=== PATIENT | male | born 1955 | race Caucasian/White ===

== ENCOUNTER 2020-08-15 06:22 | Outpatient (REF) | payer BC, SELFPAY ==
[2020-08-15 07:14] LABS: MANUAL DIFF FLAG NO
[2020-08-15 07:22] LABS: Basophils Percent Auto 0.3 % (0-2); Eosinophils Absolute Auto 0.3 X10*3/uL (0.0-0.4); Eosinophils Percent Auto 3.5 % (0-4); Hematocrit 46.1 % (42-52); Hemoglobin 15.3 g/dl (14.0-18.0); Imm Gran Abs Auto 0.03 X10*3/uL (0.00-0.03); Imm Gran Pct Auto 0.3 % (0.0-0.4); Lymphocytes Absolute Auto 3.1 X10*3/uL (1.2-4.9); Lymphocytes Percent Auto 34.7 % (20-40); Mean Corpuscular HGB Conc 33.2 g/dl (31.0-36.0); Mean Corpuscular Hemoglobin 30.9 pg (27.0-33.0); Mean Corpuscular Volume 93.1 fL (80-98); Monocytes Absolute Auto 0.8 X10*3/uL (0.1-1.2); Monocytes Percent Auto 9.1 % (2-11); Neutrophils Absolute Auto 4.7 X10*3/uL (2.0-8.3); Neutrophils Percent Auto 52.1 % (45-73); Platelet Count 304 X10*3/uL (160-400); Red Blood Count 4.95 X10*6/uL (4.60-5.80); Red Cell Distribution Width 12.3 % (11.0-16.0); White Blood Count 9.1 X10*3/uL (4.8-10.8)
[2020-08-15 07:39] LABS: Estimated Average Glucose 157 mg/dL; Hemoglobin A1c % 7.1 %
[2020-08-15 07:59] LABS: Alanine Aminotransferase 19 U/L (0-40); Albumin Level 4.5 g/dL (3.5-5.0); Alkaline Phosphatase 61 U/L (39-117); Anion Gap 15 (12-20); Aspartate Amino Transferase 15 U/L (5-37); Bilirubin Total 0.6 mg/dL (0.0-1.0); Blood Urea Nitrogen 18 mg/dL (9-16); Calcium 9.3 mg/dL (8.4-10.2); Carbon Dioxide 27 mmol/L (22-29); Chloride 105 mmol/L (96-108); Estimated Glomerular Filt Rate > 60; Glucose Fasting 180 mg/dL (60-99); Potassium 4.6 mmol/l (3.3-5.1); Sodium 142 mmol/L (135-145)
[2020-08-15 08:20] LABS: Thyroid Stimulating Hormone 1.31 uIU/mL (0.32-4.0)
[2020-08-15 08:36] LABS: ~HepC Num1 0.06 S/CO (0.00-0.79); ~Hepatitis C Antibody Nonreactive (Nonreactive)
== END 2020-08-15 06:23 | disposition home or self-care (01) ==
LOC: HO.LAB 06:22
PROVIDERS: PCP Internal Medicine; Visit Provider Internal Medicine
DX: E11.9 Type 2 diabetes mellitus without complications (principal); E78.00 Pure hypercholesterolemia, unspecified; Z11.59 Encounter for screening for other viral diseases
CPT/HCPCS: 36415; 80053; 83036; 84443; 85025; 86803

== ENCOUNTER → 2020-08-22 10:03 | Outpatient (BNVA) | payer BC, SELFPAY | PROVIDERS: PCP Internal Medicine; Visit Provider Orthopaedic Surgery ==

== ENCOUNTER 2020-09-08 06:08 | Outpatient (REF) | payer BC, SELFPAY ==
[2020-09-08 07:15] LABS: MANUAL DIFF FLAG NO
[2020-09-08 07:27] LABS: Glucose Urine UA NEG (NEG); Leukocyte Esterase Urine NEG (NEG); Nitrite Urine NEG (NEG); Specific Gravity - Urine 1.025 (1.005-1.025); Urine Blood NEG (NEG); Urine Ketones NEG (NEG); Urine Protein NEG (NEG-TRACE)
[2020-09-08 07:29] LABS: Appearance Urine CLEAR; Color Urine YELLOW
[2020-09-08 07:31] LABS: Basophils Percent Auto 0.3 % (0-2); Eosinophils Absolute Auto 0.3 X10*3/uL (0.0-0.4); Eosinophils Percent Auto 2.9 % (0-4); Hematocrit 46.8 % (42-52); Hemoglobin 15.1 g/dl (14.0-18.0); Imm Gran Abs Auto 0.02 X10*3/uL (0.00-0.03); Imm Gran Pct Auto 0.2 % (0.0-0.4); Lymphocytes Percent Auto 33.9 % (20-40); Mean Corpuscular HGB Conc 32.3 g/dl (31.0-36.0); Mean Corpuscular Hemoglobin 30.1 pg (27.0-33.0); Mean Corpuscular Volume 93.2 fL (80-98); Mean Platelet Volume 10.3 fL (9.4-12.4); Monocytes Absolute Auto 0.9 X10*3/uL (0.1-1.2); Monocytes Percent Auto 10.1 % (2-11); Neutrophils Absolute Auto 4.6 X10*3/uL (2.0-8.3); Neutrophils Percent Auto 52.6 % (45-73); Platelet Count 287 X10*3/uL (160-400); Red Blood Count 5.02 X10*6/uL (4.60-5.80); Red Cell Distribution Width 12.6 % (11.0-16.0); White Blood Count 8.7 X10*3/uL (4.8-10.8)
[2020-09-08 07:44] LABS: Creatinine Urine 132.96 mg/dL
[2020-09-08 07:49] LABS: Alanine Aminotransferase 17 U/L (0-40); Albumin Level 4.4 g/dL (3.5-5.0); Alkaline Phosphatase 66 U/L (39-117); Anion Gap 13 (12-20); Aspartate Amino Transferase 14 U/L (5-37); Bilirubin Total 0.6 mg/dL (0.0-1.0); Blood Urea Nitrogen 17 mg/dL (9-16); Calcium 9.4 mg/dL (8.4-10.2); Carbon Dioxide 27 mmol/L (22-29); Chloride 102 mmol/L (96-108); Cholesterol 211 mg/dL; Estimated Glomerular Filt Rate > 60; Glucose Fasting 184 mg/dL (60-99); HDL Cholesterol 52 mg/dL; LDL Cholesterol Calculated 130 mg/dl; Potassium 4.8 mmol/L (3.3-5.1); Sodium 137 mmol/L (135-145); Triglycerides 149 mg/dL
[2020-09-08 07:55] LABS: Estimated Average Glucose 171 mg/dL; Hemoglobin A1c % 7.6 %
[2020-09-08 08:10] LABS: Prostate Specific Antigen Scr 1.47 ng/mL (<0.05-4.0); Thyroid Stimulating Hormone 1.35 uIU/mL (0.32-4.0)
[2020-09-08 10:37] LABS: Vitamin B12 1473 pg/mL (200-900)
== END 2020-09-08 06:09 | disposition home or self-care (01) ==
LOC: HO.LAB 06:08
PROVIDERS: Visit Provider Internal Medicine
DX: Z12.5 Encounter for screening for malignant neoplasm of prostate (principal); E11.9 Type 2 diabetes mellitus without complications; E53.8 Deficiency of other specified B group vitamins; I10 Essential (primary) hypertension; E78.00 Pure hypercholesterolemia, unspecified
CPT/HCPCS: 36415; 80053; 80061; 81003; 82043; 82607; 83036; 84153; 84443; 85025

== ENCOUNTER 2020-09-21 09:00 | Outpatient (REF) | payer BC, SELFPAY ==
--- NOTE | ~2020-09-21 | US_ITS ---
EXAMINATION: US RETROPERITONEAL LIMITED (AORTA) CLINICAL INFORMATION: History of smoking, screening. COMPARISON: None. TECHNIQUE: Yusuf-scale, color Doppler and spectral Doppler evaluation of the abdominal aorta. FINDINGS: The aorta is normal. The measurements of the aorta in maximum AP and transverse dimensions respectively are as follows: Proximal: 2.4 x 2.2 cm. Mid: 2.0 x 2.2 cm. Distal: 1.7 x 1.7 cm. PSV: 113 cm/s. The measurements of the common iliac arteries in maximum AP and TRV dimensions are as follows: Right Common Iliac Artery: 1.1 x 1.0 cm. Left Common Iliac Artery: 1.1 x 1.1 cm. US/US aorta IMPRESSION: No evidence of aortic aneurysm.
== END 2020-09-21 09:01 | disposition home or self-care (01) ==
LOC: HO.HMGCX 09:00
PROVIDERS: PCP Internal Medicine; Visit Provider Internal Medicine
DX: Z13.6 Encounter for screening for cardiovascular disorders (principal)
CPT/HCPCS: 76775

== ENCOUNTER 2021-06-05 06:15 | Outpatient (REF) | payer BC, SELFPAY ==
[2021-06-05 07:55] LABS: Alanine Aminotransferase 16 U/L (0-40); Albumin Level 4.4 g/dL (3.5-5.0); Alkaline Phosphatase 67 U/L (39-117); Anion Gap 13 (12-20); Aspartate Amino Transferase 14 U/L (5-37); Bilirubin Total 0.6 mg/dL (0.0-1.0); Blood Urea Nitrogen 15 mg/dL (9-16); Calcium 9.4 mg/dL (8.4-10.2); Carbon Dioxide 27 mmol/L (22-29); Chloride 104 mmol/L (96-108); Cholesterol 205 mg/dL; Estimated Glomerular Filt Rate > 60; Glucose Random 192 mg/dL (60-115); HDL Cholesterol 53 mg/dL; LDL Cholesterol Calculated 119 mg/dl; Potassium 4.7 mmol/L (3.3-5.1); Sodium 139 mmol/L (135-145); Total Protein 6.9 g/dL (6.5-8.0); Triglycerides 165 mg/dL
== END 2021-06-05 06:16 | disposition home or self-care (01) ==
LOC: HO.LAB 06:15
PROVIDERS: PCP Internal Medicine; Visit Provider Internal Medicine
DX: E78.00 Pure hypercholesterolemia, unspecified (principal); I10 Essential (primary) hypertension
CPT/HCPCS: 36415; 80053; 80061

== ENCOUNTER 2021-06-07 06:09 | Outpatient (REF) | payer BC, SELFPAY ==
[2021-06-07 06:16] LABS: MANUAL DIFF FLAG NO
[2021-06-07 07:43] LABS: Basophils Absolute Auto 0.1 X10*3/uL (0.0-0.2); Basophils Percent Auto 0.5 % (0-2); Eosinophils Absolute Auto 0.4 X10*3/uL (0.0-0.4); Eosinophils Percent Auto 3.7 % (0-4); Hematocrit 45.2 % (42.0-52.0); Hemoglobin 14.9 g/dl (14.0-18.0); Imm Gran Abs Auto 0.03 X10*3/uL (0.00-0.03); Imm Gran Pct Auto 0.3 % (0.0-0.4); Lymphocytes Percent Auto 30.7 % (20-40); Mean Corpuscular Hemoglobin 30.7 pg (27.0-33.0); Mean Platelet Volume 10.1 fL (9.4-12.4); Monocytes Absolute Auto 0.8 X10*3/uL (0.1-1.2); Monocytes Percent Auto 8.3 % (2-11); Neutrophils Absolute Auto 5.5 x10*3/uL (2.0-8.3); Neutrophils Percent Auto 56.5 % (45-73); Platelet Count 303 X10*3/uL (160-400); Red Blood Count 4.86 X10*6/uL (4.60-5.80); Red Cell Distribution Width 12.4 % (11.0-16.0); White Blood Count 9.8 X10*3/uL (4.8-10.8)
[2021-06-07 07:49] LABS: Appearance Urine CLEAR; Color Urine YELLOW; Glucose Urine UA NEG (NEG); Leukocyte Esterase Urine NEG (NEG); Nitrite Urine NEG (NEG); PH 5.5 (5.0-8.0); Specific Gravity - Urine 1.025 (1.005-1.025); Urine Blood NEG (NEG); Urine Ketones NEG (NEG); Urine Protein NEG (NEG-TRACE)
[2021-06-07 07:54] LABS: Estimated Average Glucose 163 mg/dL; Hemoglobin A1c % 7.3 %
[2021-06-07 08:04] LABS: Creatinine Urine 89.59 mg/dL; Microalbum/Creatinine Ratio Ur 6.6 ug/mg cr
[2021-06-07 08:10] LABS: Alanine Aminotransferase 18 U/L (0-40); Albumin Level 4.3 g/dL (3.5-5.0); Alkaline Phosphatase 64 U/L (39-117); Anion Gap 13 (12-20); Aspartate Amino Transferase 14 U/L (5-37); Bilirubin Total 0.6 mg/dL (0.0-1.0); Blood Urea Nitrogen 15 mg/dL (9-16); Calcium 9.2 mg/dL (8.4-10.2); Carbon Dioxide 26 mmol/L (22-29); Chloride 104 mmol/L (96-108); Cholesterol 195 mg/dL; Estimated Glomerular Filt Rate > 60; Glucose Random 183 mg/dL (60-115); HDL Cholesterol 52 mg/dL; LDL Cholesterol Calculated 115 mg/dl; Potassium 4.8 mmol/L (3.3-5.1); Sodium 138 mmol/L (135-145); Triglycerides 144 mg/dL
[2021-06-07 08:34] LABS: Thyroid Stimulating Hormone 1.84 uIU/mL (0.32-4.0)
[2021-06-07 09:40] LABS: Vitamin B12 371 pg/mL (200-900)
== END 2021-06-07 06:10 | disposition home or self-care (01) ==
LOC: HO.LAB 06:09
PROVIDERS: PCP Internal Medicine; Visit Provider Internal Medicine
DX: E78.00 Pure hypercholesterolemia, unspecified (principal); E11.9 Type 2 diabetes mellitus without complications; I10 Essential (primary) hypertension
CPT/HCPCS: 36415; 80053; 80061; 81003; 82043; 82607; 83036; 84443; 85025

== ENCOUNTER 2021-09-07 06:05 | Outpatient (REF) | payer BC, SELFPAY ==
[2021-09-07 06:27] LABS: MANUAL DIFF FLAG NO
[2021-09-07 07:09] LABS: Basophils Percent Auto 0.5 % (0-2); Eosinophils Absolute Auto 0.3 X10*3/uL (0.0-0.4); Eosinophils Percent Auto 3.8 % (0-4); Hematocrit 46.1 % (42.0-52.0); Hemoglobin 15.2 g/dl (14.0-18.0); Imm Gran Abs Auto 0.03 X10*3/uL (0.00-0.03); Imm Gran Pct Auto 0.4 % (0.0-0.4); Lymphocytes Absolute Auto 2.8 X10*3/uL (1.2-4.9); Lymphocytes Percent Auto 34.2 % (20-40); Mean Corpuscular Hemoglobin 30.6 pg (27.0-33.0); Mean Corpuscular Volume 92.9 fL (80.0-98.0); Monocytes Absolute Auto 0.7 X10*3/uL (0.1-1.2); Monocytes Percent Auto 8.3 % (2-11); Neutrophils Absolute Auto 4.3 x10*3/uL (2.0-8.3); Neutrophils Percent Auto 52.8 % (45-73); Platelet Count 276 X10*3/uL (160-400); Red Blood Count 4.96 X10*6/uL (4.60-5.80); Red Cell Distribution Width 12.2 % (11.0-16.0); White Blood Count 8.1 X10*3/uL (4.8-10.8)
[2021-09-07 07:22] LABS: Estimated Average Glucose 163 mg/dL; Hemoglobin A1c % 7.3 %
[2021-09-07 07:34] LABS: Alanine Aminotransferase 14 U/L (0-40); Albumin Level 4.2 g/dL (3.5-5.0); Alkaline Phosphatase 65 U/L (39-117); Anion Gap 11 (12-20); Aspartate Amino Transferase 14 U/L (5-37); Bilirubin Total 0.5 mg/dL (0.0-1.0); Blood Urea Nitrogen 18 mg/dL (9-16); Calcium 9.4 mg/dL (8.4-10.2); Carbon Dioxide 28 mmol/L (22-29); Chloride 104 mmol/L (96-108); Cholesterol 190 mg/dL; Estimated Glomerular Filt Rate > 60; Glucose Random 162 mg/dL (60-115); HDL Cholesterol 46 mg/dL; LDL Cholesterol Calculated 114 mg/dl; Sodium 138 mmol/L (135-145); Total Protein 6.9 g/dL (6.5-8.0); Triglycerides 150 mg/dL
[2021-09-07 07:39] LABS: Appearance Urine CLEAR; Color Urine YELLOW; Glucose Urine UA NEG (NEG); Leukocyte Esterase Urine NEG (NEG); Nitrite Urine NEG (NEG); PH 5.5 (5.0-8.0); Specific Gravity - Urine 1.025 (1.005-1.025); Urine Blood NEG (NEG); Urine Ketones NEG (NEG); Urine Protein NEG (NEG-TRACE)
[2021-09-07 08:44] LABS: Creatinine Urine 85.87 mg/dL; Microalbumin Urine < 5.0 mg/L
== END 2021-09-07 06:06 | disposition home or self-care (01) ==
LOC: HO.LAB 06:05
PROVIDERS: PCP Internal Medicine; Visit Provider Internal Medicine
DX: I10 Essential (primary) hypertension (principal); E11.9 Type 2 diabetes mellitus without complications; E78.00 Pure hypercholesterolemia, unspecified
CPT/HCPCS: 36415; 80053; 80061; 81003; 82043; 83036; 84443; 85025

== ENCOUNTER 2021-10-15 06:22 | Outpatient (REF) | payer BC, SELFPAY ==
[2021-10-15 06:36] LABS: MANUAL DIFF FLAG NO
[2021-10-15 07:21] LABS: Basophils Percent Auto 0.2 % (0-2); Eosinophils Absolute Auto 0.8 X10*3/uL (0.0-0.4); Eosinophils Percent Auto 6.2 % (0-4); Hematocrit 42.9 % (42.0-52.0); Hemoglobin 13.8 g/dl (14.0-18.0); Imm Gran Abs Auto 0.04 X10*3/uL (0.00-0.03); Imm Gran Pct Auto 0.3 % (0.0-0.4); Lymphocytes Absolute Auto 2.9 X10*3/uL (1.2-4.9); Lymphocytes Percent Auto 21.7 % (20-40); Mean Corpuscular HGB Conc 32.2 g/dl (31.0-36.0); Mean Corpuscular Hemoglobin 29.9 pg (27.0-33.0); Mean Corpuscular Volume 92.9 fL (80.0-98.0); Mean Platelet Volume 10.3 fL (9.4-12.4); Monocytes Absolute Auto 1.2 X10*3/uL (0.1-1.2); Monocytes Percent Auto 9.1 % (2-11); Neutrophils Absolute Auto 8.2 x10*3/uL (2.0-8.3); Neutrophils Percent Auto 62.5 % (45-73); Platelet Count 283 X10*3/uL (160-400); Red Blood Count 4.62 X10*6/uL (4.60-5.80); Red Cell Distribution Width 12.7 % (11.0-16.0); White Blood Count 13.2 X10*3/uL (4.8-10.8)
[2021-10-15 07:29] LABS: Estimated Average Glucose 160 mg/dL; Hemoglobin A1c % 7.2 %
[2021-10-15 08:13] LABS: Prostate Specific Antigen Scr 1.09 ng/mL (<0.05-4.0)
[2021-10-15 08:14] LABS: Alanine Aminotransferase 16 U/L (0-40); Albumin Level 4.1 g/dL (3.5-5.0); Alkaline Phosphatase 61 U/L (39-117); Anion Gap 14 (12-20); Aspartate Amino Transferase 16 U/L (5-37); Bilirubin Total 0.5 mg/dL (0.0-1.0); Blood Urea Nitrogen 15 mg/dL (9-16); Calcium 9.2 mg/dL (8.4-10.2); Carbon Dioxide 26 mmol/L (22-29); Chloride 104 mmol/L (96-108); Cholesterol 176 mg/dL; Estimated Glomerular Filt Rate > 60; Glucose Random 162 mg/dL (60-115); HDL Cholesterol 46 mg/dL; LDL Cholesterol Calculated 107 mg/dl; Potassium 4.9 mmol/L (3.3-5.1); Sodium 139 mmol/L (135-145); Total Protein 6.7 g/dL (6.5-8.0); Triglycerides 118 mg/dL
[2021-10-15 09:18] LABS: Creatinine Urine 142.37 mg/dL; Microalbum/Creatinine Ratio Ur 4.9 ug/mg cr
== END 2021-10-15 06:23 | disposition home or self-care (01) ==
LOC: HO.LAB 06:22
PROVIDERS: PCP Internal Medicine; Visit Provider Internal Medicine
DX: Z12.5 Encounter for screening for malignant neoplasm of prostate (principal); E11.9 Type 2 diabetes mellitus without complications; M17.0 Bilateral primary osteoarthritis of knee; I10 Essential (primary) hypertension
CPT/HCPCS: 36415; 80053; 80061; 82043; 83036; 84153; 85025

== ENCOUNTER 2022-05-30 06:04 | Outpatient (REF) | payer BC, SELFPAY ==
[2022-05-30 06:09] LABS: MANUAL DIFF FLAG NO
[2022-05-30 07:41] LABS: Basophils Absolute Auto 0.1 X10*3/uL (0.0-0.2); Basophils Percent Auto 0.5 % (0-2); Eosinophils Absolute Auto 0.4 X10*3/uL (0.0-0.4); Eosinophils Percent Auto 3.4 % (0-4); Hematocrit 45.6 % (42.0-52.0); Hemoglobin 14.9 g/dl (14.0-18.0); Imm Gran Abs Auto 0.04 X10*3/uL (0.00-0.03); Imm Gran Pct Auto 0.4 % (0.0-0.4); Lymphocytes Absolute Auto 3.8 X10*3/uL (1.2-4.9); Lymphocytes Percent Auto 36.5 % (20-40); Mean Corpuscular HGB Conc 32.7 g/dl (31.0-36.0); Mean Corpuscular Hemoglobin 30.5 pg (27.0-33.0); Mean Corpuscular Volume 93.3 fL (80.0-98.0); Mean Platelet Volume 9.9 fL (9.4-12.4); Monocytes Absolute Auto 0.9 X10*3/uL (0.1-1.2); Monocytes Percent Auto 8.9 % (2-11); Neutrophils Absolute Auto 5.2 x10*3/uL (2.0-8.3); Neutrophils Percent Auto 50.3 % (45-73); Platelet Count 295 X10*3/uL (160-400); Red Blood Count 4.89 X10*6/uL (4.60-5.80); Red Cell Distribution Width 12.5 % (11.0-16.0); White Blood Count 10.3 X10*3/uL (4.8-10.8)
[2022-05-30 07:46] LABS: Estimated Average Glucose 163 mg/dL; Hemoglobin A1c % 7.3 %
[2022-05-30 08:09] LABS: Alanine Aminotransferase 17 U/L (0-40); Albumin Level 4.4 g/dL (3.5-5.0); Alkaline Phosphatase 68 U/L (39-117); Anion Gap 16 (12-20); Aspartate Amino Transferase 15 U/L (5-37); Bilirubin Total 0.6 mg/dL (0.0-1.0); Blood Urea Nitrogen 14 mg/dL (9-16); Calcium 9.3 mg/dL (8.4-10.2); Carbon Dioxide 25 mmol/L (22-29); Chloride 104 mmol/L (96-108); Estimated Glomerular Filt Rate > 60; Glucose Random 148 mg/dL (60-115); Potassium 4.4 mmol/L (3.3-5.1); Sodium 141 mmol/L (135-145); Total Protein 6.9 g/dL (6.5-8.0)
[2022-05-30 08:20] LABS: Thyroid Stimulating Hormone 1.67 uIU/mL (0.32-4.0)
== END 2022-05-30 06:05 | disposition home or self-care (01) ==
LOC: HO.LAB 06:04
PROVIDERS: PCP Internal Medicine; Visit Provider Internal Medicine
DX: E11.9 Type 2 diabetes mellitus without complications (principal); I10 Essential (primary) hypertension
CPT/HCPCS: 36415; 80053; 83036; 84443; 85025

== ENCOUNTER → 2022-08-06 12:08 | Outpatient (BNVA) | payer OTHER, SELFPAY | PROVIDERS: PCP Internal Medicine; Visit Provider Physician Assistant Medical | DX: S70.02XA Contusion of left hip, initial encounter (principal); S83.92XA Sprain of unspecified site of left knee, initial encounter; W01.0XXA Fall on same level from slipping, tripping and stumbling without subsequent striking against object, initial encounter | CPT/HCPCS: 73502; 73564; 99203 ==

== ENCOUNTER → 2022-08-12 10:32 | Outpatient (BNVA) | payer OTHER, SELFPAY | PROVIDERS: PCP Internal Medicine; Visit Provider Physician Assistant Medical | DX: S70.02XA Contusion of left hip, initial encounter (principal); S83.92XA Sprain of unspecified site of left knee, initial encounter; W01.0XXA Fall on same level from slipping, tripping and stumbling without subsequent striking against object, initial encounter | CPT/HCPCS: 99213 ==

== ENCOUNTER → 2022-08-27 07:59 | Outpatient (BNVA) | payer OTHER, SELFPAY | PROVIDERS: PCP Internal Medicine; Visit Provider Physician Assistant Medical | DX: S70.02XD Contusion of left hip, subsequent encounter (principal); S83.92XD Sprain of unspecified site of left knee, subsequent encounter; W01.0XXD Fall on same level from slipping, tripping and stumbling without subsequent striking against object, subsequent encounter | CPT/HCPCS: 99213 ==

== ENCOUNTER 2022-12-26 06:03 | Outpatient (REF) | payer BC, SELFPAY ==
[2022-12-26 06:18] LABS: MANUAL DIFF FLAG NO
[2022-12-26 07:32] LABS: Basophils Absolute Auto 0.1 X10*3/uL (0.0-0.2); Basophils Percent Auto 0.6 % (0-2); Eosinophils Absolute Auto 0.3 X10*3/uL (0.0-0.4); Eosinophils Percent Auto 2.9 % (0-4); Hemoglobin 15.1 g/dl (14.0-18.0); Imm Gran Abs Auto 0.04 X10*3/uL (0.00-0.03); Imm Gran Pct Auto 0.4 % (0.0-0.4); Lymphocytes Absolute Auto 3.6 X10*3/uL (1.2-4.9); Lymphocytes Percent Auto 35.2 % (20-40); Mean Corpuscular HGB Conc 32.8 g/dl (31.0-36.0); Mean Corpuscular Hemoglobin 30.4 pg (27.0-33.0); Mean Corpuscular Volume 92.6 fL (80.0-98.0); Monocytes Absolute Auto 0.9 X10*3/uL (0.1-1.2); Monocytes Percent Auto 9.1 % (2-11); Neutrophils Absolute Auto 5.3 x10*3/uL (2.0-8.3); Neutrophils Percent Auto 51.8 % (45-73); Platelet Count 304 X10*3/uL (160-400); Red Blood Count 4.97 X10*6/uL (4.60-5.80); Red Cell Distribution Width 12.4 % (11.0-16.0); White Blood Count 10.3 X10*3/uL (4.8-10.8)
[2022-12-26 07:44] LABS: Estimated Average Glucose 157 mg/dL; Hemoglobin A1c % 7.1 %
[2022-12-26 08:00] LABS: Alanine Aminotransferase 19 U/L (0-40); Albumin Level 4.4 g/dL (3.5-5.0); Alkaline Phosphatase 67 U/L (39-117); Anion Gap 13 (12-20); Aspartate Amino Transferase 17 U/L (5-37); Bilirubin Total 0.7 mg/dL (0.0-1.0); Blood Urea Nitrogen 18 mg/dL (9-16); Calcium 9.4 mg/dL (8.4-10.2); Carbon Dioxide 26 mmol/L (22-29); Chloride 105 mmol/L (96-108); Cholesterol 198 mg/dL; Estimated Glomerular Filt Rate > 60; Glucose Random 167 mg/dL (60-115); HDL Cholesterol 55 mg/dL; LDL Cholesterol Calculated 110 mg/dl; Potassium 4.4 mmol/L (3.3-5.1); Sodium 140 mmol/L (135-145); Triglycerides 166 mg/dL
[2022-12-26 08:24] LABS: Appearance Urine Clear; Color Urine Yellow; Glucose Urine UA Negative (Negative); Leukocyte Esterase Urine Negative (Negative); Nitrite Urine Negative (Negative); Urine Blood Negative (Negative); Urine Ketones Negative (Negative); Urine Protein Negative (Neg-Trace)
[2022-12-26 08:28] LABS: Thyroid Stimulating Hormone 2.21 uIU/mL (0.32-4.0); Vitamin B12 390 pg/mL (200-900)
[2022-12-26 08:32] LABS: Creatinine Urine 129.17 mg/dL; Microalbum/Creatinine Ratio Ur 5.4 ug/mg cr
== END 2022-12-26 06:04 | disposition home or self-care (01) ==
LOC: HO.LAB 06:03
PROVIDERS: PCP Internal Medicine; Visit Provider Internal Medicine
DX: E11.9 Type 2 diabetes mellitus without complications (principal); I10 Essential (primary) hypertension; Z12.5 Encounter for screening for malignant neoplasm of prostate
CPT/HCPCS: 36415; 80053; 80061; 81003; 82043; 82607; 83036; 84153; 84443; 85025

== ENCOUNTER 2023-05-06 06:30 | Day surgery (SDC) | payer BC, SELFPAY ==
--- NOTE | 2023-05-05 08:44 | HO.ANESPROP2 ---
Documented by User: Layne Dawn NP 05/05/23 08:45 HPI - Anesthesia Eval Consult details Narrative: 67yo M for Colonoscopy [facility] Active Problems Active Problems: All Active Problems (Updated 08/22/20 @ 10:20 by Nick Botello MD) Lipoma of right shoulder (Acute) Past Medical History Medical History (Updated 05/06/23 @ 06:41 by Petrona Huber RN) Hypertension Diabetes Surgical History Surgical History (Updated 05/06/23 @ 07:07 by Petrona Huber RN) History of total bilateral knee replacement (TKR) Hx of colonoscopy Social History Social History (Updated 08/22/20 @ 10:10 by Chikis Stover CMA) Patient Tobacco Use Status: Never used Tobacco Are you DNR?: No Advance Directives: No Advance Directives Information Provided: Yes Nutrition Risks: No Nutritional Risk Current occupational status: employed 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 Meds Allergies Allergy/AdvReac Type Severity Reaction Status Date / Time No Known Allergies Allergy Verified 05/06/23 06:41 Home Medications Medication Instructions Recorded Confirmed Last Taken Type calcium glubionate 115 mg/5 mL mg PO 08/22/20 Unknown History (1.8 gram/5 mL) oral syrup metformin 500 mg tablet 500 mg PO DAILY 08/22/20 05/06/23 Unknown History valsartan 80 mg tablet 80 mg PO DAILY 08/22/20 05/06/23 05/06/23 History Exam Exam Date and Time: May 05, 2023 0844 Assessment and Plan Assessment Anesthesia Assessment: Chart Reviewed Documented by User: Kingsley Molina MD 05/06/23 07:41 [facility] Past Medical History Medical History (Updated 05/06/23 @ 06:41 by Petrona Huber RN) Hypertension Diabetes Family History Family history of problems with anesthesia: No Surgical History Surgical History (Updated 05/06/23 @ 07:07 by Petrona Huber RN) History of total bilateral knee replacement (TKR) Hx of colonoscopy History of Problems with Anesthesia: No Social History Social History (Updated 08/22/20 @ 10:10 by Chikis Stover CMA) Patient Tobacco Use Status: Never used Tobacco Are you DNR?: No Advance Directives: No Advance Directives Information Provided: Yes Nutrition Risks: No Nutritional Risk Current occupational status: employed 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 Allergies Allergy/AdvReac Type Severity Reaction Status Date / Time No Known Allergies Allergy Verified 05/06/23 06:41 Home Medications Medication Instructions Recorded Confirmed Last Taken Type calcium glubionate 115 mg/5 mL mg PO 08/22/20 Unknown History (1.8 gram/5 mL) oral syrup metformin 500 mg tablet 500 mg PO DAILY 08/22/20 05/06/23 Unknown History valsartan 80 mg tablet 80 mg PO DAILY 08/22/20 05/06/23 05/06/23 History Exam Airway Mallampati Class: II TM Dist: >3cm Neck ROM: Full Heart: ok Lungs: ok Assessment and Plan Assessment Anesthesia Assessment: Anesthesia Plan Discussed Final Anesthetic Review Family History of Problems with Anesthesia: No History of Problems with Anesthesia: No NPO: Yes ASA Class: II Final Preanesthetic Review: No Changes in Pt Med Stat, Meds/Allgs Chart Reviewed, Consent Obtained/Reviewed and Anes Risks/Benef Reviewed Patient Risk: Low Procedure Risk: Low Anesthetic Plan Anesthetic Plan: MAC: and Agree w/ Assess. and Plan Disposition: Standard PACU
[2023-05-06 06:03] VITALS: BMI 22.4
[2023-05-06] MEDS: Lactated Ringers 1,000 ML 100 ML IVCONT (06:49)
[2023-05-06 06:54] VITALS: BP 151/81; PULSE 82; RESP 18; TEMP 36.6; O2SAT 98
[2023-05-06 07:27] LABS: Glucose, Whole Blood 142 mg/dL (60-115)
--- NOTE | 2023-05-06 07:29 | P.HPSUR_ITS ---
Pre-Procedural Eval Section A Date of Service: 05/06/23 Section B Chief Complaint: Encounter for screening for malignant neoplasm of Details of Present Illness: see H&P no changes Relevant Family History (Specify if Yes): No Relevant Social History: None Present Medications: see Short Stay Collaborative assessment Medical History: No relevant PMH History of Previous Operations: No relevant previous surgery Allergies: Allergies Allergy/AdvReac Type Severity Reaction Status Date / Time No Known Allergies Allergy Verified 05/06/23 06:41 Review of Systems Sugical H&P ROS: Negative: Constitution, Cardiovascular, Respiratory, Neurolo gical, Psychiatric, Hem-Onc, Allergic/Immunologic, Gastrointestinal, Genitourinary, Musculoskeletal, Integumentary, Endocrine and Eyes/Ears/Nose/Throat Exam Surgical H&P Exam: Normal: HEENT, Normal: Heart, Normal: Lungs, Normal: Extremities, Normal: Abdomen, Normal: Skin and Normal: Neurological Plan Diagnosis/Plan: Unchanged I have reviewed the history and physical and performed a pertinent physical examination on my patient. No changes have occurred unless specified. Time Spent With Patient Time: Total time managing care of this patient today ____ minutes.
--- NOTE | 2023-05-06 08:02 | P.BOP_ITS ---
Brief Operative Note Date of Service: 05/06/23 Pre-op diagnosis: screening Post-op diagnosis: same Surgeon: Eldon Mallory MD Anesthesia: MAC Was an Customer Service Driver used for this Procedure?: No Estimated blood loss (mL): 2 Pathology: other Condition: stable Disposition: PACU
[2023-05-06 08:06] VITALS: BP 120/77; PULSE 76; RESP 18; TEMP 36.1; O2SAT 98
[2023-05-06 08:21] VITALS: BP 140/73; PULSE 78; RESP 16; TEMP 36.1; O2SAT 99
--- NOTE | 2023-05-06 08:27 | OP_ITS ---
DATE OF SERVICE: 05/06/2023 SURGEON: Eldon Mallory MD INDICATIONS: Colon cancer screening and family history of colon cancer. PREOPERATIVE DIAGNOSIS: POSTOPERATIVE DIAGNOSIS: PROCEDURE PERFORMED: Colonoscopy to the terminal ileum with biopsy. ESTIMATED BLOOD LOSS: COMPLICATIONS: ANESTHESIA: Monitored anesthesia care. ASSISTANTS: SPECIMENS: DESCRIPTION OF PROCEDURE: A history and physical was performed. The risks and benefits of the procedure were explained to the patient. Informed consent was obtained. The patient was placed in the left lateral decubitus position. A digital rectal exam was performed and was found to be normal. The Olympus pediatric video colonoscope was introduced into the rectum and advanced to the cecum. The cecum was identified by transillumination, palpation, identification of ileocecal valve. Examination was performed. The scope was removed. He tolerated the procedure well and was returned to recovery in stable condition. FINDINGS: The terminal ileum was examined and appeared normal. The visualized colonic mucosa was normal. The quality of the prep was excellent. 1 polyp was identified at 40 cm, removed with biopsy forceps. This measured less than 5 mm. There was mild sigmoid diverticulosis. Retroflexed examination showed some moderate-sized internal hemorrhoids and some hypertrophic anal papillae. IMPRESSION: Colon polyp. RECOMMENDATION: Follow up the biopsy results. MD ANTIONE Alfaro/MANOHARL / [id number]
== END 2023-05-06 08:43 | disposition home or self-care (01) ==
PROVIDERS: PCP Internal Medicine; Visit Provider Internal Medicine Gastroenterology
PROC: 0DJD8ZZ Inspection of Lower Intestinal Tract, Via Natural or Artificial Opening Endoscopic (ICD-10-PCS; CPT 45378; principal; 2023-05-06 07:30)
DX: Z12.11 Encounter for screening for malignant neoplasm of colon (principal); Z80.0 Family history of malignant neoplasm of digestive organs; Z86.010 Personal history of colon polyps; D12.5 Benign neoplasm of sigmoid colon; K57.30 Diverticulosis of large intestine without perforation or abscess without bleeding; K64.8 Other hemorrhoids; K62.89 Other specified diseases of anus and rectum; I10 Essential (primary) hypertension; E11.9 Type 2 diabetes mellitus without complications; Z79.84 Long term (current) use of oral hypoglycemic drugs; Z79.899 Other long term (current) drug therapy
CPT/HCPCS: 45380; 82947; 88305

== ENCOUNTER 2023-08-29 06:11 | Outpatient (REF) | payer BC, SELFPAY ==
[2023-08-29 08:03] LABS: Estimated Average Glucose 166 mg/dL; Hemoglobin A1c % 7.4 % (<6.0)
[2023-08-29 08:35] LABS: Alanine Aminotransferase 22 U/L (0-40); Albumin Level 4.2 g/dL (3.5-5.0); Alkaline Phosphatase 64 U/L (39-117); Anion Gap 14 (12-20); Aspartate Amino Transferase 18 U/L (5-37); Bilirubin Total 0.6 mg/dL (0.0-1.0); Blood Urea Nitrogen 14 mg/dL (9-16); Calcium 9.3 mg/dL (8.4-10.2); Carbon Dioxide 27 mmol/L (22-29); Chloride 104 mmol/L (96-108); Cholesterol 182 mg/dL (<200); Estimated Glomerular Filt Rate > 60; Glucose Random 155 mg/dL (60-115); HDL Cholesterol 51 mg/dL (>40); LDL Cholesterol Calculated 104 mg/dL (<100); Potassium 4.2 mmol/L (3.3-5.1); Sodium 141 mmol/L (135-145); Triglycerides 135 mg/dL (<150)
[2023-08-29 08:50] LABS: Creatinine Urine 126.78 mg/dL; Microalbum/Creatinine Ratio Ur 5.5 ug/mg cr (<30)
== END 2023-08-29 06:12 | disposition home or self-care (01) ==
LOC: HO.LAB 06:11
PROVIDERS: PCP Internal Medicine; Visit Provider Internal Medicine
DX: E11.9 Type 2 diabetes mellitus without complications (principal); E78.2 Mixed hyperlipidemia; I10 Essential (primary) hypertension
CPT/HCPCS: 36415; 80053; 80061; 82043; 82570; 83036

== ENCOUNTER 2024-03-15 14:25 | Outpatient (AMB) | payer BC, SELFPAY ==
--- NOTE | 2024-03-15 14:32 | MHC.OFFVIS ---
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 Pt states this started years ago. 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 Pt states the numbness and tingling has progressively been getting worse and states he wakes up at night due to the pain. Pt states he has pain in his thumb, index and middle finger. 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 The patient reports that his symptoms are intermittent, but daily, and worse at night. 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 The patient reports that his pain regularly wakes him from sleep. Patient denies any symptoms in the left hand. No other acute complaints or concerns at this time. 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 Normal sensation in the tips of all digits of the left hand today. No thenar or intrinsic wasting. Good APB muscle firing and good finger cross. Vascular: Capillary refill brisk. ROM: Patient can make a fist and extend all their digits. Skin: No lacerations or abrasions noted. General: No ecchymosis. No erythema or evidence of infection. Positive Tinel's test on the right Assessment & Plan Assessment & Plan (1) Numbness and tingling in right hand: Code(s): R20.0 - Anesthesia of skin; R20.2 - Paresthesia of skin Category: Medical Plan 1. Right hand numbness and tingling Symptoms intermittent, but daily, worse at night Ongoing for ?many years? Patient has no current nerve conduction study on file and has never had 1 previously EMG and nerve conduction study ordered today to assess the health of the nerves of the right upper extremity Patient is amenable to this plan For relief of his nighttime pain, the patient is provided with a Velcro wrist brace to wear only at nighttime Patient is advised that he should not wear the brace during the day and should continue working on range of motion of the right hand and wrist during the day. Patient will follow-up after nerve conduction study for results review and discussion of potential treatment options, sooner with any acute concerns Coding Level of Care Code New Pt Level 3 (71693) Diagnoses Numbness and tingling in right hand R20.0; R20.2
== END 2024-03-15 15:00 | disposition home or self-care (01) ==
PROVIDERS: PCP Internal Medicine
DX: R20.0 Anesthesia of skin (principal); R20.2 Paresthesia of skin
CPT/HCPCS: 99203

== ENCOUNTER → 2024-03-15 14:25 | Outpatient (BNVA) | payer BC, SELFPAY | PROVIDERS: PCP Internal Medicine ==

== ENCOUNTER 2024-03-17 05:59 | Outpatient (REF) | payer BC, SELFPAY ==
[2024-03-17 06:27] LABS: MANUAL DIFF FLAG NO
[2024-03-17 07:17] LABS: Basophils Percent Auto 0.4 % (0-2); Eosinophils Absolute Auto 0.2 X10*3/uL (0.0-0.4); Eosinophils Percent Auto 2.2 % (0-4); Hematocrit 48.1 % (42.0-52.0); Hemoglobin 16.2 g/dl (14.0-18.0); Imm Gran Abs Auto 0.03 X10*3/uL (0.00-0.03); Imm Gran Pct Auto 0.3 % (0.0-0.4); Lymphocytes Absolute Auto 3.1 X10*3/uL (1.2-4.9); Lymphocytes Percent Auto 30.9 % (20-40); Mean Corpuscular HGB Conc 33.7 g/dl (31.0-36.0); Mean Corpuscular Hemoglobin 31.2 pg (27.0-33.0); Mean Corpuscular Volume 92.5 fL (80.0-98.0); Mean Platelet Volume 10.2 fL (9.4-12.4); Monocytes Percent Auto 9.4 % (2-11); Neutrophils Absolute Auto 5.8 x10*3/uL (2.0-8.3); Neutrophils Percent Auto 56.8 % (45-73); Platelet Count 325 X10*3/uL (160-400); Red Cell Distribution Width 12.9 % (11.0-16.0); White Blood Count 10.2 X10*3/uL (4.8-10.8)
[2024-03-17 07:18] LABS: Estimated Average Glucose 148 mg/dL; Hemoglobin A1c % 6.8 % (<6.0)
[2024-03-17 07:43] LABS: Alanine Aminotransferase 17 U/L (0-40); Albumin Level 4.5 g/dL (3.5-5.0); Alkaline Phosphatase 75 U/L (39-117); Anion Gap 13 (12-20); Aspartate Amino Transferase 19 U/L (5-37); Bilirubin Total 0.7 mg/dL (0.0-1.0); Blood Urea Nitrogen 17 mg/dL (9-16); Carbon Dioxide 28 mmol/L (22-29); Chloride 104 mmol/L (96-108); Cholesterol 179 mg/dL (<200); Estimated Glomerular Filt Rate > 60; Glucose Random 84 mg/dL (60-115); HDL Cholesterol 56 mg/dL (>40); LDL Cholesterol Calculated 104 mg/dL (<100); Potassium 4.3 mmol/L (3.3-5.1); Sodium 141 mmol/L (135-145); Total Protein 7.5 g/dL (6.5-8.0); Triglycerides 97 mg/dL (<150)
[2024-03-17 07:55] LABS: Prostate Specific Antigen Scr 1.06 ng/mL (<0.05-4.0)
== END 2024-03-17 06:00 | disposition home or self-care (01) ==
LOC: HO.LAB 05:59
PROVIDERS: PCP Internal Medicine; Visit Provider Internal Medicine
DX: Z12.5 Encounter for screening for malignant neoplasm of prostate (principal); Z13.1 Encounter for screening for diabetes mellitus
CPT/HCPCS: 36415; 80053; 80061; 83036; 84153; 85025

== ENCOUNTER 2024-05-13 15:16 | Outpatient (REF) | payer BC, SELFPAY ==
--- NOTE | 2024-05-13 15:20 | EMG_ITS ---
Chief complaint: Right hand numbness, mainly 1st to 3rd digits. 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 Reason for referral: Evaluate for Carpal Tunnel Syndrome Referred by: Raffy LARKIN Procedure done: Right upper extremity NCS/EMG Precautions and/or limitations: None The limb temperature was monitored continuously and remained between 32-36 degrees C during the performance of the NCS. Nerve Conduction Studies Anti Sensory Summary Table ?Stim Site NR Onset (ms) Norm Onset (ms) Peak (ms) Norm Peak (ms) O-P Amp (?V) Norm O-P Amp Site1 Site2 Delta-0 (ms) Dist (cm) Mike (m/s) Norm Mike (m/s) Right Median Anti Sensory (2nd Digit) Wrist NR <3.6 >10 Wrist 2nd Digit 14.0 Right Radial Anti Sensory (Thumb) Forearm ? 1.6 2.0 <3.1 20.4 Forearm Thumb 1.6 0.0 Right Ulnar Anti Sensory (5th Digit) Wrist ? 0.9 3.4 <3.7 18.5 >15.0 Wrist 5th Digit 0.9 14.0 156 Motor Summary Table ?Stim Site NR Onset (ms) Norm Onset (ms) O-P Amp (mV) Norm O-P Amp iAmp (mV) Amp (1st) (%) Site1 Site2 Delta-0 (ms) Dist (cm) Mike (m/s) Norm Mike (m/s) Right Median Motor (Abd Poll Brev) Wrist ? 9.3 <3.9 3.5 >4.5 4.1 100.0 Elbow Wrist 5.3 21.0 40 >45 Elbow ? 14.6 3.3 3.8 94.3 Right Ulnar Motor (Abd Dig Minimi) Wrist ? 3.0 <3.0 8.7 >5 10.1 100.0 B Elbow Wrist 3.6 19.5 54 >45 B Elbow ? 6.6 8.0 9.6 92.0 A Elbow B Elbow 1.5 10.0 67 >45 A Elbow ? 8.1 7.8 9.4 89.7 EMG ?Side Muscle Nerve Root Ins Act Fibs Psw Amp Dur Poly Recrt Int Pat Comment Right 1stDorInt Ulnar C8-T1 Nml Nml Nml Nml Nml 0 Nml Complete Right FlexCarRad Median C6-7 Nml Nml Nml Nml Nml 0 Nml Complete Right Biceps Musculocut C5-6 Nml Nml Nml Nml Nml 0 Nml Complete Right Triceps Radial C6-7-8 Nml Nml Nml Nml Nml 0 Nml Complete Right Deltoid Axillary C5-6 Nml Nml Nml Nml Nml 0 Nml Complete FINDINGS: Right median motor nerve showed prolonged distal latency, small amplitude and slow conduction velocity. Right median sensory nerve no response. All other nerves tested were within normal. Concentric needle EMG was performed in selected muscles of the right upper extremity. Study did not reveal signs of electric abnormalities as shown in the table above. IMPRESSION: 1. This is an abnormal study. 2. There is electrodiagnostic evidence for right moderate-severe median neuropathy at the wrist, consistent with carpal tunnel syndrome. 3. There is no electrodiagnostic evidence for ulnar neuropathy, brachial plexopathy, or cervical radiculopathy. Thank you for your kind referral. Rafaela Dunn MD, LAWANDA Board Certified, [place] Board [employer] and Rehabilitation (ABPMR) Board Certified, [place] Board of Electrodiagnostic Medicine (ABEM) [place] [id number] [facility]
== END 2024-05-13 15:17 | disposition home or self-care (01) ==
LOC: HO.NEURO 15:16
PROVIDERS: PCP Internal Medicine
DX: R20.0 Anesthesia of skin (principal); R20.2 Paresthesia of skin
CPT/HCPCS: 95886; 95909

== ENCOUNTER → 2024-05-13 15:20 | Outpatient (BNV) | payer BC, SELFPAY | PROVIDERS: PCP Internal Medicine; Visit Provider Physical Medicine & Rehabilitation | DX: G56.01 Carpal tunnel syndrome, right upper limb (principal) | CPT/HCPCS: 95886; 95909 ==

== ENCOUNTER 2024-05-21 09:37 | Outpatient (AMB) | payer BC, SELFPAY ==
--- NOTE | 2024-05-21 09:44 | A.OFFVIS_ITS ---
Vital Signs 05/21/24 09:45 Height 5 ft 7.5 in Weight 145 lb BMI 22.4 Intake Visit Reasons: OV RT Hand EMG review Intake Note: Everardo is a 68 year old right hand dominant male who presents today for an EMG review of his right hand. Allergies advil gel capsules Allergy (Intermediate, Uncoded 03/15/24 14:32) Facial Swelling HPI HPI OV RT Hand EMG review: Details: Patient is a 68-year-old male who presents for right hand EMG review. The funmilayo rosario reports that his symptoms have remained constant and daily since previous evaluation, and he would like to proceed with any potential operative intervention indicated. Patient reports that he is not experiencing any numbness or tingling in the left hand at this time. No other acute complaints or concerns. 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 Normal sensation in the tips of all digits of the left hand today. No thenar or intrinsic wasting. Good APB muscle firing and good finger cross. Vascular: Capillary refill brisk. ROM: Patient can make a fist and extend all their digits. Skin: No lacerations or abrasions noted. General: No ecchymosis. No erythema or evidence of infection. Positive Tinel's test on the right Results Reviewed Results Reviewed: IMPRESSION: 1. This is an abnormal study. 2. There is electrodiagnostic evidence for right moderate-severe median neuropathy at the wrist, consistent with carpal tunnel syndrome. 3. There is no electrodiagnostic evidence for ulnar neuropathy, brachial plexopathy, or cervical radiculopathy. Thank you for your kind referral. Rafaela Dunn MD, LAWANDA 05/13/2024 Assessment & Plan Assessment & Plan (1) Carpal tunnel syndrome of right wrist: Code(s): G56.01 - Carpal tunnel syndrome, right upper limb Category: Medical Plan 1. Carpal tunnel syndrome, right Symptoms dense, daily, worse at night I educated the patient about the condition. I discussed both operative and nonoperative treatment options. The patient would like to proceed with surgery. The risks and benefits of operative treatment were discussed with the patient and the patient wishes to proceed with surgery. These risks include, but are not limited to, risk of damage to blood vessels, nerves, tendons, infection, recurrence, incomplete relief of preoperative symptoms, persistent pain, possible need for further surgery, and the risks associated with regional blocks and/or anesthesia. Plan is to take the patient to the operating room at some point in the next few weeks for the following procedures: 1. Right carpal tunnel release under local anesthesia All of the preoperative paperwork including the consent was discussed today. All of the patient's questions were answered in the clinic today. The patient understands that they will be in contact with our rn surgical pcu to discuss scheduling their procedure. Patient reports diabetes, last A1c 6.8 Denies blood thinners, asthma, heart issues, lung issues, kidney issues, or current smoking. Coding Level of Care Code Est Pt Level 4 (76512) Diagnoses Carpal tunnel syndrome of right wrist G56.01
[2024-05-21 09:45] VITALS: BMI 22.4
== END 2024-05-21 10:13 | disposition home or self-care (01) ==
LOC: HO.HOS 09:37
PROVIDERS: PCP Internal Medicine
DX: G56.01 Carpal tunnel syndrome, right upper limb (principal)
CPT/HCPCS: 99214

== ENCOUNTER → 2024-05-21 09:37 | Outpatient (BNVA) | payer BC, SELFPAY | PROVIDERS: PCP Internal Medicine ==

== ENCOUNTER 2024-07-12 10:49 | Day surgery (SDC) | payer BC, SELFPAY ==
[2024-07-12 11:18] VITALS: BMI 22.6
[2024-07-12 11:22] VITALS: BP 144/69; PULSE 74; RESP 14; TEMP 36.7; O2SAT 98; BMI 22.6
--- NOTE | 2024-07-12 12:39 | P.OP_ITS ---
Operative Note Operative Note Date of Service: 07/12/24 Narrative: Preop diagnosis: 1. Right Carpal tunnel syndrome Postop diagnosis: same Procedure: 1. Right Carpal tunnel release Surgeon: Leonor Pearson MD Labor Relations Representative: None Anesthesia: local block using 1% lidocaine with epinephrine Findings: Thickened transverse carpal ligament. EBL: Less than 5 mL Specimens: None Complications: None Disposition: Brought to recovery room in stable condition Plan: Follow-up for 10-14 days for wound check and suture removal Indications: The patient is 68 years old, with right carpal tunnel syndrome that has been unresponsive to nonoperative management. The risks and benefits of operative treatment including but not limited to risk of damage to blood vessels, nerves, tendons, infection, persistent pain, persistent symptoms, or possible need for additional surgery were discussed with the patient and the patient wishes to proceed with surgery. Procedure: Once consent was obtained a local block was performed using a combination of 1% lidocaine with epinephrine. The patient was then brought back to the operating suite and placed on the operative table in supine position. The right upper extremity was prepped and draped in a standard surgical fashion. Once assured that we had a good block, a 2.0 cm longitudinal incision was made centered over the carpal tunnel. The incision was made through the skin to the subcutaneous tissues using a #15 blade. Dissection was made down to the level of the transverse carpal ligament with care being taken to protect the palmar cutaneous nerve. Once the transverse carpal ligament was clearly visualized, a longitudinal incision was made in the transverse carpal ligament 1st using a #15 blade, then using tenotomy scissors under direct visualization. Care was taken to look for and protect the motor branch of the median nerve when seen in this area. Once satisfied with our carpal tunnel release the wound was copiously irrigated with normal saline and hemostasis was obtained with a brief period of local pressure. The skin edges were reapproximated with some 5.0 nylon suture material and a sterile dressing was applied. The patient appears to have tolerated the procedure well and with no complic ations. All digits were well vascularized at the conclusion of the case.
--- NOTE | 2024-07-12 12:39 | MHC.SHP ---
Pre-Procedural Eval Section A - 24 Hr Update-Section A only Date of Service: 07/12/24 The patient is an INPATIENT: No Changes since office visit: No Cold of Flu in the past 2 weeks, No New Medical Problems, No Changes in Medication and No Patient answered all questions The patient has been examined within 24 hours of the surgical procedure. The History & Physical has been completed within 30 days and I have reviewed it.: Yes Section B - Complete if H&P > 30 days Chief Complaint: Carpal tunnel syndrome, right upper limb Allergies: Allergies Allergy/AdvReac Type Severity Reaction Status Date / Time advil gel capsules Allergy Intermediate Facial Uncoded 03/15/24 14:32 Swelling Plan Diagnosis/Plan: Unchanged I have reviewed the history and physical and performed a pertinent physical examination on my patient. No changes have occurred unless specified. Time Spent With Patient Time: Total time managing care of this patient today ____ minutes.
[2024-07-12 14:18] VITALS: BP 123/70; PULSE 81; RESP 16; O2SAT 97
== END 2024-07-12 14:19 | disposition home or self-care (01) ==
PROVIDERS: PCP Internal Medicine; Visit Provider Orthopaedic Surgery
PROC: (CPT 64721; principal; 2024-07-12 12:50)
DX: G56.01 Carpal tunnel syndrome, right upper limb (principal); I10 Essential (primary) hypertension; E11.9 Type 2 diabetes mellitus without complications; Z88.6 Allergy status to analgesic agent; Z96.653 Presence of artificial knee joint, bilateral
CPT/HCPCS: 64721; J2004

== ENCOUNTER → 2024-07-12 10:49 | Outpatient (BNV) | payer BC, SELFPAY | PROVIDERS: PCP Internal Medicine; Visit Provider Orthopaedic Surgery | DX: G56.01 Carpal tunnel syndrome, right upper limb (principal) | CPT/HCPCS: 64721 ==

== ENCOUNTER 2024-07-23 11:25 | Outpatient (AMB) | payer BC, SELFPAY ==
--- NOTE | 2024-07-23 11:27 | MHC.OFFVIS ---
Vital Signs 07/23/24 11:34 Height 5 ft 7 in Weight 144 lb BMI 22.6 Intake Visit Reasons: PO RT CTR 07/12/24 AR Intake Note: Everardo is a 68 year old right hand dominant male who presents today for a post operative visit for his right carpal tunnel release DOS: 07/12/2024 w/ Dr Pearson. Sutures removed and steri-strips applied. Patient reports he is doing well, states mild numbness and tingling however he has had improvement. Allergies advil gel capsules Allergy (Intermediate, Uncoded 07/23/24 11:33) Facial Swelling HPI HPI PO RT CTR 07/12/24 AR: Details: Patient is a 68-year-old male who presents for postoperative evaluation status post right carpal tunnel release, DOS 07/12/[address] Pearson. Today, the patient reports that he is feeling well, and experiences no pain or discomfort in the right hand at this time. Patient does report that he does still experience intermittent numbness and tingling, but this has improved vastly since prior to surgery. No other acute complaints or concerns at this time. 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 Neuro: Diminished sensation in the median nerve distribution of the right hand Normal sensation of the all other digits of the right hand Vascular: Cap refill brisk Pain: No tenderness to palpation about the incision site No pain with range of motion of the right hand ROM: Patient is able to make a closed fist and extend all digits of the right hand fully and without difficulty Skin: Well approximated and well healing incision site noted on the volar aspect of the patient's right wrist General: No ecchymosis, erythema, or evidence of infection. Psych: Appears grossly normal Affect normal Attitude cooperative Assessment & Plan Assessment & Plan (1) Carpal tunnel syndrome of right wrist: Code(s): G56.01 - Carpal tunnel syndrome, right upper limb Category: Medical Plan 1. Carpal tunnel syndrome, right, status post carpal tunnel release DOS 07/12/2024 Patient appears to be recovering well postoperatively Patient is educated about the typical recovery course At this time sutures removed and Steri-Strips applied Patient was informed that he will not require any acute follow-up with us, as he appears to be recovering very well Patient was amenable to this plan Patient will follow-up as needed with any acute concerns Coding Level of Care Code Global (17435) Diagnoses Carpal tunnel syndrome of right wrist G56.01
[2024-07-23 11:34] VITALS: BMI 22.6
== END 2024-07-23 11:46 | disposition home or self-care (01) ==
PROVIDERS: PCP Internal Medicine
DX: G56.01 Carpal tunnel syndrome, right upper limb (principal)
CPT/HCPCS: 99024

== ENCOUNTER → 2024-07-23 11:25 | Outpatient (BNVA) | payer BC, SELFPAY | PROVIDERS: PCP Internal Medicine ==

== ENCOUNTER 2024-08-03 06:08 | Outpatient (REF) | payer BC, SELFPAY ==
[2024-08-03 06:22] LABS: MANUAL DIFF FLAG NO
[2024-08-03 07:02] LABS: Basophils Percent Auto 0.4 % (0-2); Eosinophils Absolute Auto 0.3 X10*3/uL (0.0-0.4); Eosinophils Percent Auto 2.6 % (0-4); Hematocrit 48.1 % (42.0-52.0); Hemoglobin 16.1 g/dl (14.0-18.0); Imm Gran Abs Auto 0.02 X10*3/uL (0.00-0.03); Imm Gran Pct Auto 0.2 % (0.0-0.4); Lymphocytes Absolute Auto 3.8 X10*3/uL (1.2-4.9); Mean Corpuscular HGB Conc 33.5 g/dl (31.0-36.0); Mean Corpuscular Hemoglobin 30.7 pg (27.0-33.0); Mean Corpuscular Volume 91.8 fL (80.0-98.0); Mean Platelet Volume 9.7 fL (9.4-12.4); Monocytes Percent Auto 9.8 % (2-11); Neutrophils Absolute Auto 4.7 x10*3/uL (2.0-8.3); Platelet Count 279 X10*3/uL (160-400); Red Blood Count 5.24 X10*6/uL (4.60-5.80); Red Cell Distribution Width 12.8 % (11.0-16.0); White Blood Count 9.9 X10*3/uL (4.8-10.8)
[2024-08-03 07:10] LABS: Appearance Urine Clear; Color Urine Yellow; Glucose Urine UA >=1000 mg/dL (Negative); Leukocyte Esterase Urine Negative (Negative); Nitrite Urine Negative (Negative); Specific Gravity - Urine >= 1.030 (1.005-1.025); UMIC TRIGGER UACC YES; Urine Blood Negative (Negative); Urine Ketones 15 mg/dL (Negative); Urine Protein Negative (Neg-Trace)
[2024-08-03 07:15] LABS: Bacteria Urine None Seen (None Seen); Hyaline Casts Urine 0-2 /LPF (0-2); RBC Urine 0-2 /HPF (0-2); Squamous Epithelial Cell Urine 0-2 /HPF (0-2); WBC Urine 0-5 /HPF (0-5)
[2024-08-03 07:23] LABS: Creatinine Urine 93.89 mg/dL; Microalbumin Urine < 5.0 mg/L
[2024-08-03 07:26] LABS: Estimated Average Glucose 151 mg/dL; Hemoglobin A1C 219.2731 umol/L; Hemoglobin A1c % 6.9 % (<6.0); Total Hemoglobin (HGBA1C) 4195.0423 umol/L
[2024-08-03 08:06] LABS: Alanine Aminotransferase 25 U/L (0-40); Albumin Level 4.3 g/dL (3.5-5.0); Alkaline Phosphatase 70 U/L (39-117); Anion Gap 12 (12-20); Aspartate Amino Transferase 24 U/L (5-37); Blood Urea Nitrogen 18 mg/dL (9-16); Calcium 8.9 mg/dL (8.4-10.2); Carbon Dioxide 28 mmol/L (22-29); Chloride 105 mmol/L (96-108); Cholesterol 214 mg/dL (<200); Estimated Glomerular Filt Rate > 60; Glucose Random 136 mg/dL (60-115); HDL Cholesterol 64 mg/dL (>40); LDL Cholesterol Calculated 118 mg/dL (<100); Potassium 4.1 mmol/L (3.3-5.1); Sodium 141 mmol/L (135-145); Triglycerides 162 mg/dL (<150)
[2024-08-03 08:21] LABS: Thyroid Stimulating Hormone 2.13 uIU/mL (0.32-4.0)
[2024-08-03 08:23] LABS: Vitamin B12 284 pg/mL (200-900)
== END 2024-08-03 06:09 | disposition home or self-care (01) ==
LOC: HO.LAB 06:08
PROVIDERS: PCP Internal Medicine; Visit Provider Internal Medicine
DX: E11.9 Type 2 diabetes mellitus without complications (principal); I10 Essential (primary) hypertension; E78.00 Pure hypercholesterolemia, unspecified
CPT/HCPCS: 36415; 80053; 80061; 81001; 81003; 82043; 82570; 82607; 83036; 84443; 85025

== ENCOUNTER 2024-11-29 06:06 | Outpatient (REF) | payer MEDICARE, SELFPAY ==
[2024-11-29 07:42] LABS: Estimated Average Glucose 151 mg/dL; Hemoglobin A1C 204.5668 umol/L; Hemoglobin A1c % 6.9 % (<6.0); Total Hemoglobin (HGBA1C) 3946.9785 umol/L
[2024-11-29 07:44] LABS: Anion Gap 15 (12-20); Blood Urea Nitrogen 16 mg/dL (9-16); Calcium 9.2 mg/dL (8.4-10.2); Carbon Dioxide 24 mmol/L (22-29); Chloride 105 mmol/L (96-108); Estimated Glomerular Filt Rate > 60; Glucose Random 95 mg/dL (60-115); Potassium 4.2 mmol/L (3.3-5.1); Sodium 140 mmol/L (135-145)
== END 2024-11-29 06:07 | disposition home or self-care (01) ==
LOC: HO.LAB 06:06
PROVIDERS: PCP Internal Medicine; Visit Provider Internal Medicine
DX: I10 Essential (primary) hypertension (principal); Z13.1 Encounter for screening for diabetes mellitus
CPT/HCPCS: 36415; 80048; 83036

== ENCOUNTER 2025-06-02 06:20 | Outpatient (REF) | payer MEDICARE, SELFPAY ==
--- OUTSIDE RECORDS SUMMARY | 2025-06-02 06:23 | XMS_ITS | Clinical Summary ---
Author Organization [facility] Address [address] [place] [address] Phone Care Team Providers Care Reclamation Kettle Tender Name Role Phone Ramon Norman MD Primary Care Provider [phone] Allergies Active Allergy Reactions Criticality Noted Date Comments Ibuprofen Angioedema 11/30/2024 Lisinopril Cough 08/22/2017 Tamsulosin Angioedema 11/13/2021 Valsartan Angioedema 10/31/2021 Lip,eye and tongue swelling at different times Medications cyanocobalamin, vitamin B-12, 100 MCG tablet Take 1,000 mcg by mouth daily. Active ibuprofen (ADVIL,MOTRIN) 200 MG tablet Take 200 mg by mouth daily as needed for pain (specific location in comments). Active cholecalciferol, vitamin D3, (VITAMIN D3 ORAL) Take 1 capsule by mouth every morning. Active blood-glucose (ONETOUCH VERIO FLEX METER) Misc meterIndications:Type 2 diabetes mellitus without complications as directed 1 each 03/19/20 24 Active atorvastatin (LIPITOR) 10 MG tabletIndications:Pure hypercholesterolemia Take 1 tablet (10 mg total) by mouth daily. 90 tablet 3 08/30/19 25 Active pyridoxine, vitamin B6, (B-6) 100 MG tablet Take 100 mg by mouth daily. Active sildenafiL (VIAGRA) 50 mg tabletIndications:Erect ile dysfunction, unspecified erectile dysfunction type Take 1 tablet (50 mg total) by mouth daily as needed (erectile dysfunction). 30 tablet 3 09/16/19 25 Active aspirin 81 MG EC tabletIndications:Type 2 diabetes mellitus without complication, without long-term current use of insulin Take 1 tablet (81 mg total) by mouth daily. 09/16/19 25 Active metFORMIN (GLUCOPHAGE-XR) 500 MG 24 hr tabletIndications:Type 2 diabetes mellitus without complications TAKE 2 TABLETS (1,000 MG TOTAL) in the am and 1 tablet in the PM 270 tablet 3 10/17/19 25 Active FARXIGA 5 mg tabletIndications:Type 2 diabetes mellitus without complication, without long-term current use of insulin Take 1 tablet (5 mg total) by mouth daily. Medication approved 07/20/2024-. Approval [id number]. 90 tablet 3 10/17/19 25 Active amLODIPine (NORVASC) 5 MG tabletIndications:Prima ry hypertension TAKE 1 TABLET DAILY 90 tablet 3 02/24/20 25 Active ONETOUCH VERIO Strp stripsIndications:Type 2 diabetes mellitus without complication USE AND DISCARD 1 TEST STRIP EVERY MORNING 100 strip 03/15/20 25 Active glipiZIDE (GLUCOTROL) 5 MG tabletIndications:Type 2 diabetes mellitus without complication, without long-term current use of insulin Take 1 tablet (5 mg total) by mouth daily with breakfast. 90 tablet 3 04/20/20 25 Active Active Problems Problem Noted Date Diagnosed Date Bilateral impacted cerumen 05/11/2025 Assessment & Plan (05/11/2025 2:00 PM EDT): Patient with noted bilateral earaches right greater than left. Patient noted decreased hearing bilaterally. On physical examination he is noted to have cerumen impaction bilaterally. He has been using Debrox drops since Friday. Ear lavage bilaterally performed in the office with success. Acute pain of right shoulder 03/02/2025 Assessment & Plan (03/02/2025 2:25 PM EDT): Check right shoulder xray. Continue to rest joint. Ok to continue ibuprofen with food. Mass of skin 08/18/2020 Assessment & Plan (08/18/2020 1:07 PM EST): Impression: Possible deep hematoma versus cyst development. Because it happened with heavy lifting would like orthopedist to weigh in on finding. Referral to Dr. Mcgraw in [place]. COVID-19 virus infection 06/22/2020 Colon polyp 08/25/2017 Type 2 diabetes mellitus 08/25/2017 Type 2 diabetes mellitus without complication Assessment & Plan (08/18/2020 1:08 PM EST): Encouraged the patient to follow-up with primary care physician to get blood sugars reassessed which should occur at least twice a year. Hypertension 08/25/2017 Hypercholesteremia 08/25/2017 Primary osteoarthritis of both knees 08/25/2017 Type 2 diabetes mellitus without complications 0 08/25/2017 Diabetes type 2, controlled Overview (09/06/2021): last A1C was 7.3% 06/07/2021 Heart murmur, systolic Encounters Date Type Department Care Team Description 05/11/2025 1:40 PM EDT Office Visit [facility] Internal Medicine [address] [place] [address] Raimundo Cui PA-C Bilateral impacted cerumen (Primary Dx) 04/20/2025 Telephone [facility] Internal Medicine [address] [place] [address] Ramon Norman MD Medication Problem 04/04/2025 Telephone [facility] Internal Medicine [address] [place] [address] Emely Kulkarni RN Results 04/01/2025 Refill [facility] Internal Medicine [address] [place] [address] Ramon Norman MD Medication Refill 03/15/2025 Refill [facility] Internal Medicine 40 [facility] [address] Ramon Norman MD Medication Refill 03/07/2025 Orders Only [facility] Internal Medicine [address] [facility] [place] [address] Vladislav Parmar MD 03/02/2025 2:00 PM EDT Office Visit [facility] [address] [place], [place] [address] Mel Ramires, NILSA Acute pain of right shoulder (Primary Dx) from Last 3 Months Immunizations Immunization Administration Dates Next Due COVID-19 (Pre-05/12) Moderna Vaccine, mRNA, PF 07/07/2021,11/02/2020,10/05/2020 Tdap 01/18/2009 Family History Medical History Relation Comments Lung cancer Brother Colon cancer Daughter Diabetes Father Cancer Mother Relation Status Comments Brother Daughter at age 39 d /t colon cancer Father Mother Social History Tobacco Use Types Packs/Day Years Used Date Smoking Tobacco: Former Cigarettes 1 10.6 0 12/01/1968 - 07/21/1979 Smokeless Tobacco: Never Tobacco Cessation:Counseling Given: Not Answered Alcohol Use Standard Drinks/Week Comments Yes 6 (1 standard drink = 0.6 oz pur e alcohol) Child or Family Care Answer Date Record ed Do you have problems with on e of the following making it difficult for you to work, study, or receive health care? No 11/30/2024 Education Answer Date Recorded Are you interested in more education? Not on delphine e 09/15/2023 Are you concerned about learning? Not on file 09/15/2023 No 09/15/2023 No 09/15/2023 Food Answer Date Recorded Within the past 6 months we worried whether our food would run out before we got money to buy more. Never True 11/30/2024 Within the past 6 months the food we bought just didn't last and we didn't have enough money to get more. Never True Residential Stability Answer Date Recor ded What is your housing situation today? I have saurabh sing 11/30/2024 How many times have you move d in the past 12 months? Zero (I did not move) 11/30/2024 Paying for Meds Answer Date Recorded Do you have trouble paying for medicines? No 11/30/2024 Paying Utility Bills Answer Date Record ed Do you have trouble paying your heating or elect ricity bill? No 11/30/2024 Transportation Answer Date Recorded Has the lack of transportati on kept you from medical appointments or from getting medications? No 11/30/2024 Unemployment Answer Date Recorded Are you currently unemployed or working on a part-time or temporary basis, and looking for work? No 09/11/2021 Digital Access Answer Date Recorded No 11/30/2024 Yes 11/30/2024 Do you have reliable internet access at home? Ye s 11/30/2024 Do you have a device (e.g., phone, tablet, computer) with a working camera? Yes 11/30/2024 Intimate Partner Violence Answer Date R ecorded Denied Basic Needs Not on file 11/30/2024 In the past 12 months have y ou been in a relationship with a person who hurts, threatens, or tries to control you? No 11/30/2024 Worried food would run out Not on file 11/30 In the past 12 months have y ou been in a relationship with a person who hurts, threatens, or tries to control you? No 11/30/2024 Sex and Gender Information Value Date Recorded Sex Assigned at Not on file Legal Sex Male 1:32 PM EDT Gender Identity Not on file Sexual Orientation Not on file Last Filed Vital Signs Vital Sign Reading Time Taken Comments Blood Pressure 130/66 05/11/2025 1:44 PM EDT Pulse 85 05/11/2025 1:44 PM EDT Temperature 36.4 C (97.6 F) 05/11/2025 1:44 PM EDT Respiratory Rate 16 05/11/2025 1:44 PM EDT Oxygen Saturation 97% 05/11/2025 1:44 PM EDT Inhaled Oxygen Concentration - - Weight 65 kg (143 lb 6.4 oz) 05/11/2025 1:44 PM EDT Height 168.8 cm (5' 6.46 ) 05/11/2025 1:44 PM ED T Body Mass Index 22.83 05/11/2025 1:44 PM EDT Plan of Treatment Upcoming Encounters Date Type Department Care Team (Late st Contact Info) Description 06/06/2025 4:30 PM EST Office Visit [facility] Internal Medicine [address] [place] [address] Ramon Norman MD [address] [place] [address] [email or web address] Health Maintenance Due Date Last Done Comments PNEUMOCOCCAL VACCINES (50+ years) (1 of 2 - PCV) 1972 COLOGUARD 1998 FIT TEST 1998 FOBT 1998 SIGMOIDOSCOPY 1998 VIRTUAL COLONOSCOPY 1998 RSV VACCINE (1 - Risk 50-74 years 1-dose series) 09/29/2003 ZOSTER VACCINES (1 of 2) 09/29/2003 Adult Td,Tdap Booster 01/18/2019 01/18/2009 INFLUENZA VACCINE (#1) 2025 COVID-19 VACCINE ( season) 2025 07/07/2021, 11/02/2020, 10/05/2020 HEMOGLOBIN A1C 06/01/2025 11/29/2024, 07/21, 03/17/2024, Additional history exists URINE MICROALBUMIN/CREATININE RATIO 08/03/2025 08/03/2024, 08/29/2023, 08/29/2023, Additional history exists DIABETIC EYE EXAM 09/13/2025 09/13/2024, , 08/07/2023, Additional history exists BLOOD PRESSURE 11/09/2025 05/11/2025 CREATININE LEVEL 11/29/2025 11/29/2024, , 03/19/2024, Additional history exists DEPRESSION SCREENING 11/30/2025 11/30/2024, 12/04/19 19 COLONOSCOPY 05/06/2028 05/06/2023, 08/21, 09/06/2011 COLORECTAL CANCER SCREENING 05/06/2028 HEPATITIS C SCREENING Completed 08/15/2020, 020 ABDOMINAL AORTIC ANEURYSM (AAA) SCREENING Completed 09/21/2020 SMOKING STATUS SCREENING (Once After 26 Yrs) Completed 05/11/2025 HEPATITIS A VACCINES Aged Out No long er eligible based on patient's age to complete this topic HIB VACCINES Aged Out No longer eligi ble based on patient's age to complete this topic IPV VACCINES Aged Out No longer eligi ble based on patient's age to complete this topic MENINGOCOCCAL VACCINES (ACWY) Aged Out No longer eligible based on patient's age to complete this topic MENINGOCOCCAL VACCINES (B) Aged Out N o longer eligible based on patient's age to complete this topic Medical Devices Implanted Type Area Modeler Device Identifier Shelf Expiration Date Model / Serial / Lot Cement Bone Radiopaque Full Dose Simplex P Bx/10 - [id number] Implanted:Qty: 1 on 08/12/2016 by Rocael Diggs MD at [facility] STANDARD Right: Knee [employer] 02/17/2019 6191-1-01 0 / / [id number] System Tkr Unicompartmental Kit Right-Medial Iuni Implantable Knee 23 - [id number] Implanted:Qty: 1 on 08/12/2016 by Rocael Diggs MD at [facility] STANDARD Right: Knee [employer] 01/17/2017 [id number] / [id number] / Cement Bone 40g Simplex P Demineralized Matrix Radiopaque Void Filler Full Dose Single Vial Bx/10ea - [id number] Implanted:Qty: 1 on 09/17/2021 by Rocael Diggs MD at [facility] Left: Knee [employer] 09/18/2023 6191-1-00 1 / / [id number] Implant Iuni Ipoly Lt Lateral - [id number] Implanted:Qty: 1 on 09/17/2021 by Rocael Diggs MD at [facility] Left: Knee [employer] 06/19/2022 [id number] / [id number] / Procedures Procedure Name Priority Date/Time Associated Diagnosis Comments XR SHOULDER (RIGHT) Routine 03/02/2025 2 :13 PM EDT Acute pain of right shoulder OUTSIDE IMAGING Routine 03/02/2025 11:26 AM EDT OUTSIDE HEMOGLOBIN A1C Routine 11/29/2024 OUTSIDE SERUM CREATININE LEVEL Routine 11/29/2024 DIABETES EYE EXAM FOR RESULT ENTRY ONLY Routine 09/13/2024 OUTSIDE URINE MALB/CRE RATIO Routine 08/03/2024 COLONOSCOPY FOR RESULT ENTRY ONLY Routine 05/06/2023 US ABDOMINAL AORTIC SCREENING Routine 09/21/2020 4:05 PM EST Screening for AAA (abdominal aortic aneurysm) from Last 3 Months or Most Recently Relevant to Health Maintenance Results * Outside Imaging Report Only (03/02/2025 11:26 AM EDT) Historical Provider IMG XR CHEST Final Res ult * Outside HbA1c (11/29/2024) Hemoglobin A1c - External 6.9 % Result [facility] Provider LAB BLOOD ORDERABLES Estefanía l Result * (ABNORMAL) Outside Serum Creatinine Level (11/29/2024) Creatinine, serum - External 0.72(A) 0.8 - 1.3 mg/dL [facility] Provider LAB BLOOD ORDERABLES Estefanía l Result * DIABETES EYE EXAM FOR RESULT ENTRY ONLY (09/13/2024) EYE EXAM no retinopathy [facility] Provider HEALTH MAINTENANCE Final Result * Outside Urine MALB/Cre Ratio (08/03/2024) Microalbumin/ Creatinine Ratio, urine - External unable to calculate ratio d/t low microalbumin or creatinine level EXTERNAL NON-INTERFAC ED REF LAB [facility] Provider LAB BLOOD ORDERABLES Estefanía l Result EXTERNAL NON-INTERFACED REF LAB * COLONOSCOPY FOR RESULT ENTRY ONLY (05/06/2023) Ramon Norman MD HEALTH MAINTENANCE Edited Res ult - Final * US Abdominal Aortic Screening (09/21/2020 4:05 PM EST) Anatomical Region Laterality Modality Abdomen Ultrasound Diagn ostic us Ramon Norman MD [facility] ABDOMEN Final Result from Last 3 Months or Most Recently Relevant to Health Maintenance Insurance MEDICARE PART A & B Member Subscriber Plan / Payer (Ef fective 2024-Present) Name:Everardo Claros Member ID:[id number] Relation to Subscriber:Self Name:Everardo Claros Subscriber ID:[id number] Payer ID:[id number] Group ID:Not on file Type:Medicare Address: [employer] [address] [place] [address] [place] [address] MEDICARE PPO BLUE REPLACEMENT MEDICARE PART A & B [facility] MEDICARE PPO BLUE REPLACEMENT MEDICARE PART A & B [place] MEDIC[place] P[place] BLUE REPLACEMENT MEDICARE PART A & B Member Subscriber Plan / Payer ( fective 2024-) Name:HaralnEverardo Member ID:[id number] Relation to Subscriber:Self Name:Harlan Everardo Subscriber ID:[id number] Payer ID:[id number] Group ID:Not on file Type:Medicare Address: [employer] [address] [place] [phone] [facility] MEDICARE PPO BLUE REPLACEMENT MEDICARE PART A & B MEDICARE PPO BLUE REPLACEMENT MEDICARE PART A & B [place] MEDICARE PPO BLUE REPLACEMENT Advance Directives For more information, please contact: [phone] (9AM - 5PM [facility], Friday-Friday) * Full Code (Presumed) (Latest Code Status on File) Date Activated Date Inactivated Comments 08/12/2016 12:36 PM 08/13/2016 2:12 PM Care Teams Reclamation Kettle Tender Relationship Specialty Start Date End Date Ramon Norman MD [address] [place] [id number] PCP - General Internal Medicine 02/01/16 Additional Source Comments The information contained in this document represents components of the legal health record. It is not the complete legal health record.[facility]
--- OUTSIDE RECORDS SUMMARY | 2025-06-02 06:23 | XMS_ITS | Encounter Summary ---
Author Organization [facility] Address [facility] [address] [place] [address] Phone Care Team Providers Care Remediation Consultant Name Role Phone Ramon Norman MD Primary Care Provider [phone] Ramon Norman MD Unavailable [phone] Encounter Details Date Type Department Care Team (Late st Contact Info) Description 03/28/2021 Procedure Pass [address] [address] Social History Tobacco Use Types Packs/Day Years Used Date Smoking Tobacco: Former Cigarettes 1 10.6 0 12/01/1968 - 07/21/1979 Smokeless Tobacco: Never Alcohol Use Standard Drinks/Week Comments Yes 10 (1 standard drink = 0.6 oz pu re alcohol) Sex and Gender Information Value Date Recorded Sex Assigned at Not on file Legal Sex Male 1:32 PM EDT Gender Identity Not on file Sexual Orientation Not on file documented as of this encounter Functional Status * Patient is deaf or has serious difficulty with hearing Answer Date of Assessment Author No 08/13/2016 10:33 AM Louisa Watson NP * Patient is blind or has serious difficulty with seeing, even when wearing glasses Answer Date of Assessment Author No 08/13/2016 10:33 AM Louisa Watson NP * Patient has serious difficulty walking or climbing stairs (5yr old or older) Answer Date of Assessment Author No 08/13/2016 10:33 AM Louisa Watson NP * Patient has serious difficulty dressing or bathing (5yr old or older) Answer Date of Assessment Author No 08/13/2016 10:33 AM Louisa Watson NP * Patient has serious difficulty doing errands alone such as visiting a doctor???s office or shopping, due to physical, mental, or emotional condition (15 years old or older) Answer Date of Assessment Author No 08/13/2016 10:33 AM Louisa Watson NP documented as of this encounter Mental Status * Patient has serious difficulty concentrating, remembering, or making decisions due to physical, mental, or emotional condition Answer Entry Date Author No 08/13/2016 10:33 AM Louisa Watson NP documented in this encounter Plan of Treatment Upcoming Encounters Date Type Department Care Team (Late st Contact Info) Description 06/06/2025 4:30 PM EST Office Visit [facility] Internal Medicine [address] [place] [address] Ramon Norman MD [address] [place] [address] documented as of this encounter Visit Diagnoses Not on filedocumented in this encounter Additional Health Concerns Infection Onset Date Last Indicated Resolved Time CoV-Risk 09/22/2024 09/22/2024 10/03/2024 1:21 AM EDT Influenza A 09/22/2024 09/22/2024 09/29/2024 1:22 AM EDT Assessment Noted Time PHQ-9 Depression Total Score: 14 019 9:40 AM EDT PHQ-2 Depression Total Score: 6 12/04/19 19 9:40 AM EDT documented as of this encounter Care Teams Remediation Consultant Relationship Specialty Start Date End Date Ramon Norman MD [address] [place] [address] PCP - General Internal Medicine 02/01/16 Ramon Norman MD [address] [place] [address] [email or web address] Insurance Assigned Provider 10/25/23 01/29/25 documented as of this encounter Additional Source Comments The information contained in this document represents components of the legal health record. It is not the complete legal health record.[facility]
--- OUTSIDE RECORDS SUMMARY | 2025-06-02 06:23 | XMS_ITS | Encounter Summary ---
Author Organization [facility] Address [facility] [address] [place] [address] Phone Care Team Providers Care Power Switchboard Operator Name Role Phone Ramon Norman MD Primary Care Provider [phone] Ramon Norman MD Unavailable [phone] Encounter Details Date Type Department Care Team (Late st Contact Info) Description 03/28/2021 Procedure Pass [address] [address] Social History Tobacco Use Types Packs/Day Years [...] Description 06/06/2025 4:30 PM EST Office Visit [facility] Internal Medicine [address] [place] [address] Ramon Norman MD [address] [place] [address] [email or web address] documented as of this encounter Visit Diagnoses [...] documented as of this encounter Care Teams Power Switchboard Operator Relationship Specialty Start Date End Date Ramon Norman MD [address] [place] [address] [email or web address] PCP - General Internal Medicine 02/01/16 Ramon Norman MD [address] [place] [address] [email or web address] Insurance Assigned Provider 10/25/23 01/29/25 documented as of this encounter Additional Source Comments The information contained in this document represents components of the legal health record. It is not the complete legal health record.[facility]
--- OUTSIDE RECORDS SUMMARY | 2025-06-02 06:23 | XMS_ITS | Patient Health Record ---
Author Organization [facility] Address [address] [place] [address] Care Team Providers Care Reading Interventionist Name Role Phone Ramon Norman MD Primary Care Provider Eldon Garcia Jr Unavailable Allergies No Known Allergies Reason For Referral No Information Medications Medication SIG (Take, Route, Frequency, Duration) Notes Start Date End Date Status Fish Oil 1000 MG 1 capsule Orally Onc e a day; Duration: 30 day(s) Active Vitamin D 25 MCG (1000 UT) 1 tablet Oral ly Once a day; Duration: 30 day(s) Active Vitamin B 12 100 MCG as directed Orally Active amLODIPine Besylate 5 MG Oral; Duration: 90 Active Metformin & Diet Manage Prod 500 mg 2 tablets twice a day Active glyBURIDE 5 MG 1 tablet with breakf ast or the first main meal of the day Orally Once a day; Duration: 30 day(s) Active Problems Problem Type SNOMED Code ICD Code Onset Dates Problem Status W/U Status Risk Notes Problem Colon cancer screening (106675143) Colon cancer screening (Z12.11) Active confirmed Problem Pre-procedure evaluation check (194275329) Encounter for other preprocedural examination (Z01.818) Active confirmed Problem Long-term current use of antiplatelet drug (934557025308794 ) watermaster (current) use of aspirin (Z79.82) Active confirmed Problem Long-term current use of drug therapy (266808131) residential (current) use of oral hypoglycemic drugs (Z79.84) Active confirmed Plan Of Treatment Future Test Test Name Order Date COLONOSCOPY 04/24/2017 COLONOSCOPY 03/10/2023 Insurance Providers Payer Name Payer Address Payer Phone Subscriber Number Group Number Insured Name Patient Relationship to Insured Coverage Start Date Coverage End Date [facility] PROF[employer]AL CLAIMS [address] [place] [address] [id number] DEION THOMPSON Self - patient is the insured Medical (General) History Medical History History ICD Code diabetes mellitus hypertension Colonoscopy 09/07, tubular adenoma, five- year followup Surgical History Surgery Date(Month/Year) knee surgery right 07/2016 knee surgery left 2020
--- OUTSIDE RECORDS SUMMARY | 2025-06-02 06:23 | XMS_ITS | Encounter Summary ---
Author Organization [facility] Address [address] [place] [address] [place] [address] Phone Care Team Providers Care Executive Vice President And Chief Financial Officer Name Role Phone Ramon Norman MD Primary Care Provider [phone] Ramon Norman MD Unavailable [phone] Encounter Details Date Type Department Care Team (Late st Contact Info) Description 08/12/2016 Procedure Pass [facility] Periop 6th floor [address] [place] [address] Social History Tobacco Use Types Packs/Day Years Used Date Smoking Tobacco: Former Cigarettes 1 10 0 07/21/1969 - 07/21/1979 Smokeless Tobacco: Never Alcohol Use Standard Drinks/Week Comments Yes 10 (1 standard drink = 0.6 oz pu re alcohol) Sex and Gender Information Value Date Recorded Sex Assigned at Not on file Legal Sex Male 1:32 PM EDT Gender Identity Not on file Sexual Orientation Not on file documented as of this encounter Plan of Treatment Upcoming Encounters Date Type Department Care Team (Late st Contact Info) Description 06/06/2025 4:30 PM EST Office Visit [facility] Internal Medicine [address] [place], [place] [id number] Ramon Norman MD [address] [place] [address] [email or web address] documented as of this encounter Visit Diagnoses Not on filedocumented in this encounter Additional Health Concerns Infection Onset Date Last Indicated Resolved Time CoV-Risk 09/22/2024 09/22/2024 10/03/2024 1:21 AM EDT Influenza A 09/22/2024 09/22/2024 09/29/2024 1:22 AM EDT documented as of this encounter Care Teams Executive Vice President And Chief Financial Officer Relationship Specialty Start Date End Date Ramon Norman MD [address] [place] [address] PCP - General Internal Medicine 02/01/16 Ramon Norman MD [address] [place] [address] Insurance Assigned Provider 10/25/23 01/29/25 documented as of this encounter Additional Source Comments The information contained in this document represents components of the legal health record. It is not the complete legal health record.[facility]
--- OUTSIDE RECORDS SUMMARY | 2025-06-02 06:23 | XMS_ITS | Encounter Summary ---
Author Organization [facility] Address [address] [place] [id number] Phone Care Team Providers Care Speech Therapist Technician Name Role Phone Ramon Norman MD Primary Care Provider [phone] Ramon Norman MD Unavailable [phone] Encounter Details Date Type Department Care Team (Late st Contact Info) Description 09/17/2021 Procedure Pass [facility] Periop 6th floor [address] [place] [address] Social History Tobacco Use Types Packs/Day Years Used Date Smoking Tobacco: Former Cigarettes 1 10.6 0 12/01/1968 - 07/21/1979 Smokeless Tobacco: Never Alcohol Use Standard Drinks/Week Comments Yes 10 (1 standard drink = 0.6 oz pu re alcohol) Child or Family Care Answer Date Record ed Do you have problems with on e of the following making it difficult for you to work, study, or receive health care? No 09/11/2021 Education Answer Date Recorded Are you interested in help w ith more adult education (for example, completing high school, GED, job training, learning the [place] language, technical skills, or developing parenting skills)? No 09/11/2021 Food Answer Date Recorded Within the past 6 months we worried whether our food would run out before we got money to buy more. Never True 09/11/2021 Within the past 6 months the food we bought just didn't last and we didn't have enough money to get more. Never True Residential Stability Answer Date Recor ded Family situation today data Not on file 08/22 How many times have you move d in the past 12 months? Zero (I did not move) 09/11/2021 Paying for Meds Answer Date Recorded Do you have trouble paying for medicines? No 09/11/2021 Paying Utility Bills Answer Date Record ed Do you have trouble paying your heating or elect ricity bill? No 09/11/2021 Transportation Answer Date Recorded Has the lack of transportati on kept you from medical appointments or from getting medications? No 09/11/2021 Unemployment Answer Date Recorded Are you currently unemployed or working on a part-time or temporary basis, and looking for work? No 09/11/2021 Sex and Gender Information Value Date Recorded [...] Description 06/06/2025 4:30 PM EST Office Visit [facility] Internal Medicine [address] [place], [place] [id number] Ramon Norman MD [address] [place], [place] [id number] documented as of this encounter Visit Diagnoses Not on filedocumented in this encounter Additional Health Concerns Infection Onset Date Last Indicated Resolved Time CoV-Risk 09/22/2024 09/22/2024 10/03/2024 1:21 AM EDT Influenza A 09/22/2024 09/22/2024 09/29/2024 1:22 AM EDT Assessment Noted Time PHQ-9 Depression Total Score: 14 019 9:40 AM EDT PHQ-2 Depression Total Score: 0 09/11/19 22 3:36 PM EST documented as of this encounter Care Teams Speech Therapist Technician Relationship Specialty Start Date End Date Ramon Norman MD [address] [place] [address] PCP - General Internal Medicine 02/01/16 Ramon Norman MD [address] [place] [address] Insurance Assigned Provider 10/25/23 01/29/25 documented as of this encounter Additional Source Comments The information contained in this document represents components of the legal health record. It is not the complete legal health record.[facility]
[2025-06-02 06:33] LABS: MANUAL DIFF FLAG NO
[2025-06-02 07:14] LABS: Hematocrit 49.4 % (42.0-52.0); Hemoglobin 16.2 g/dl (14.0-18.0); Imm Gran Abs Auto 0.02 X10*3/uL (0.00-0.03); Imm Gran Pct Auto 0.2 % (0.0-0.4); Lymphocytes Absolute Auto 3.8 X10*3/uL (1.2-4.9); Mean Corpuscular HGB Conc 32.8 g/dl (31.0-36.0); Mean Corpuscular Hemoglobin 30.9 pg (27.0-33.0); Mean Corpuscular Volume 94.1 fL (80.0-98.0); NRBC Abs Auto 0.000 X10*3/uL (0.0-0.012); NRBC Pct Auto 0.0 /100WBC (0.0-0.2); Platelet Count 295 X10*3/uL (160-400); Red Blood Count 5.25 X10*6/uL (4.60-5.80); White Blood Count 11.1 X10*3/uL (4.8-10.8)
[2025-06-02 07:35] LABS: Appearance Urine Clear; Glucose Urine UA >=1000 mg/dL (Negative); PH 5.5 (5.0-9.0); Specific Gravity - Urine >= 1.030 (1.005-1.025); UMIC TRIGGER UA YES
[2025-06-02 07:51] LABS: Alanine Aminotransferase 27 U/L (0-40); Albumin Level 4.6 g/dL (3.5-5.0); Alkaline Phosphatase 74 U/L (39-117); Anion Gap 11 (12-20); Aspartate Amino Transferase 26 U/L (5-37); Blood Urea Nitrogen 16 mg/dL (9-16); Calcium 9.2 mg/dL (8.4-10.2); Carbon Dioxide 28 mmol/L (22-29); Chloride 107 mmol/L (96-108); Cholesterol 153 mg/dL (<200); Estimated Glomerular Filt Rate > 60; HDL Cholesterol 65 mg/dL (>40); Potassium 4.4 mmol/L (3.3-5.1); Sodium 142 mmol/L (135-145); Total Protein 7.1 g/dL (6.5-8.0); Triglycerides 66 mg/dL (<150)
[2025-06-02 07:54] LABS: Thyroid Stimulating Hormone 1.77 uIU/mL (0.32-4.0)
[2025-06-02 08:02] LABS: Vitamin B12 718 pg/mL (200-900)
== END 2025-06-02 06:21 | disposition home or self-care (01) ==
LOC: HO.LAB 06:20
PROVIDERS: PCP Internal Medicine; Visit Provider Internal Medicine
DX: Z12.5 Encounter for screening for malignant neoplasm of prostate (principal); I10 Essential (primary) hypertension; E11.9 Type 2 diabetes mellitus without complications; E78.00 Pure hypercholesterolemia, unspecified; D12.6 Benign neoplasm of colon, unspecified; E53.8 Deficiency of other specified B group vitamins
CPT/HCPCS: 36415; 80053; 80061; 81001; 82043; 82570; 82607; 83036; 84153; 84443; 85025